=== PATIENT | male | born 1940 | race Caucasian/White ===

== ENCOUNTER → 2016-04-21 | Outpatient (CLI) | payer MEDICARE ==
[~2016-04-21] MED LIST: AC325T PO; AC500T; ACHD5005 PO; ALFALFA; ALPR.25T PO; ALPR1TAB7 PO; ASCO500C14 PO; ASP325T PO; ASP81CT; ASPI-983 PO; C250T; CALC-656 PO; CALCIUM WITH D; CHOL10003 PO; CLPD75T; CRESTOR40 MG PO; DCS100C; DCS100C PO; DICL75TA2 PO; DICLOFENAC; DOCU250C75 PO; EZET10TA5; FENO135C PO; FENO145T; FENO145T20 PO; FISH1CAP15 PO; GLUC1CAP37 PO; GLUCOSAMINE CHONDROI; HYDR-3812 PO; ISM30TCR; ISM30TCR PO; LOVAZA; MTP25TSR; NF-LOVAZAC PO; NITR4.1S2 SL; OMEG1CAP58 PO; OMEP20CA12; OMEP20CA12 PO; PROP1TAB77; PSYL1PAC15 PO; RMP5C; ROSU20TA14; SUPER-B COMPLEX; TEMA30CA PO; TICA90TA PO; VITA150T PO; [UNRECOGNIZED DRUG - CODE] PO
--- OUTSIDE RECORDS SUMMARY | 2016-04-21 14:43 | XMS REPORT | Continuity of Care Document ---
Author Author [facility] Organization [facility] Address Unknown Phone Unavailable Care Team Providers Care Assistant District Attorney Name Role Phone FRAN VIZCARRA MD PCP Insurance Providers Payer Name Policy Number Subscriber Name Relationship [employer] [id number] Edmar Ayala 18 Self / Same As Patient [facility] [id number] Edmar Ayala 18 Self / Same As Patient Advance Directives Directive Response Recorded Date/Time Advance Directives Yes 11/10/15 6:46pm Health Care Power of Heart Doctor Yes 11/10/15 6:46pm Organ Donor Yes 11/10/15 6:46pm Resuscitation Status Full Code 11/10/15 6:46pm Chief Complaint and Reason for Visit Chief Complaint Nasal Problems Reason for Visit Epistaxis Problems Active Problems Medical Problem Onset Date Status Epistaxis Unknown Acute Medications Current Home Medications Medication Dose Units Route Directions Days/Qty Instructions Start Date Rosuvastatin Calcium 40 Mg 40 Mg Oral Daily 09/04/10 Aspirin 81 Mg 81 Mg Oral Daily 11/09/15 Alprazolam 1 Mg 1 Mg Oral Twice A Day as needed for Anxiety 11/09/15 Hydrocodone/Acetaminophen 1 Each 1 Each Oral Every 4HRS as needed for Pain 11/09/15 Docusate Sodium 250 Mg 250 Mg Oral As Needed as needed for Constipation 11/09/15 Omeprazole 20 Mg 20 Mg Oral Daily 11/09/15 Fenofibrate Nanocrystallized 145 Mg 145 Mg Oral Daily 11/09/15 Nitroglycerin 4.1 Gm 4.1 Gm Sublingual As Needed as needed for Chest Pain 11/09/15 Fish Oil/Dha/Epa 1 Each 1 Each Oral Daily 11/09/15 Ticagrelor 90 Mg 90 Mg Oral Twice A Day 60 11/10/15 Past Home Medications Medication Directions Ordered Status Aspirin 325 Mg Tab, 325 Mg Oral Daily 09/04/10 Discontinued Pryqi-1-Tvpa Ethyl Esters 1 Gm Capsule, 1 Tab Oral Twice A Day 09/04/10 Discontinued Fenofibric Acid (Choline) 135 Mg Capsule.dr, 135 Mg Oral Daily 09/04/10 Discontinued Diclofenac Sodium 75 Mg Tablet.dr, 75 Mg Oral Twice A Day 09/04/10 Discontinued Acetaminophen 325 Mg Tablet, 325 Mg Oral As Needed 09/04/10 Discontinued Acetaminophen/Hydrocodone Bitart 1 Each Tablet, 1 Each Oral As Needed Discontinued Docusate Sodium 100 Mg Capsule, 100 Mg Oral Twice A Day 09/04/10 Discontinued Psyllium Hydrophilic Mucilloid 1 Pkt Packet, 1 Pkt Oral Twice A Day 09/04/10 Discontinued Temazepam 30 Mg Capsule, 30 Mg Oral As Needed 09/04/10 Discontinued Alprazolam 0.25 Mg Tablet, 0.25 Mg Oral As Needed 09/04/10 Discontinued Ascorbic Acid 500 Mg Capsule.sa, 500 Mg Oral Daily 09/04/10 Discontinued Luce 1 Each Tablet, 650 Mg Oral Daily 09/04/10 Discontinued Calcium Carbonate/Vitamin D3 1 Each Tablet, 1 Each Oral Daily 09/04/10 Discontinued Cholecalciferol 1,000 Unit Tablet, 1000 Unit Oral Daily 09/04/10 Discontinued Vitamin B Complex & Vit C No.4 150 Mg Tablet, 150 Mg Oral Daily 09/04/10 Discontinued Glucosa Fong 2KCL/Chondroitin Fong 1 Each Capsule, 1 Each Oral Twice A Day Discontinued [place]-3/[place]-6/[place]-9 Fatty Acids (Lovaza) 1 Each Capsule, 1 Each Oral Twice A Day 09/04/10 Discontinued Isosorbide Mononitrate 30 Mg Tab, 30 Mg Oral Daily@0630 09/04/10 Discontinued Social History Social History Problem Response Recorded Date/Time Alcohol Use Denies Use 11/10/2015 6:46pm Recreational Drug Use No 11/10/2015 6:46pm Recent Foreign Travel No 11/10/2015 6:46pm Recent Infectious Disease Exposure No 11/10/2015 6:46pm Smoking Status Never a Smoker 11/10/2015 6:46pm Recent Hopitalizations Y STENT 11/09/15 11/10/2015 6:46pm Query Response Start Date Stop Date Smoking Status Never a Smoker Hospital Discharge Instructions No hospital discharge instructions. Plan of Care Discharge Date 11/10/15 7:33pm Disposition 01 HOME, SELF-CARE Condition at Discharge Stable Instructions/Education Provided Epistaxis (ED) Prescriptions See Medication Section Referrals FRAN VIZCARRA MD - Primary Care Physician Additional Instructions/Education 1. If your nose begins to bleed again, apply direct pressure by pinching the nose shut and leaning forward for 20 minutes. If this does not stop it, come back to ER. Do not blow your nose and do your best not to sneeze. All discharge instructions reviewed with patient and/or family. Voiced understanding. Functional Status No functional status results. Allergies, Adverse Reactions, Alerts Allergen Type Severity Reaction Status Last Updated diflunisal ([id number]) Allergy Unknown Active 06/01/07 Immunizations No immunization records. Vital Signs Acute Vital Signs Vital Response Date/Time Temperature (Fahrenheit) 96.7 degrees F (97.6 - 99.5) 11/10/2015 8:40am Temperature (Calculated Celsius) 35.73930 degrees C (36.4 - 37.5) 11/10/2015 8:00am Temperature Source Tympanic 11/10/2015 8:40am Pulse Rate (adult) 77 bpm (60 - 90) 11/10/2015 6:46pm Respiratory Rate 18 bpm (12 - 24) 11/10/2015 6:46pm O2 Sat by Pulse Oximetry 95 % (88 - 100) 11/10/2015 6:46pm Blood Pressure 144/76 mm Hg 11/10/2015 6:46pm Blood Pressure Mean 98 mm Hg 11/10/2015 6:46pm Pain Numeric Pain Scale 0-No Pain 11/10/2015 8:40am Height (Feet) 5 feet 11/10/2015 6:46pm Height (Inches) 9 inches 11/10/2015 6:46pm Height (Calculated Centimeters) 175.412024 cm 11/10/2015 6:46pm Weight (Pounds) 210 pounds 11/10/2015 6:46pm Weight (Ounces) 0.0 oz 11/09/2015 7:26am Weight (Calculated Grams) 88009.21 gm 11/09/2015 7:26am Weight (Calculated Kilograms) 95.887195 kilograms 11/10/2015 6:46pm Calculated BMI 29.8 11/09/2015 7:26am Capillary Refill Capillary Refill Less Than 3 Seconds 11/10/2015 6:46pm Results Pending Laboratory Results Test Name Collection Date/Time Pending Microbiology Results Procedure Source Collection Date/Time Procedures Procedure Status Date Provider(s) Color Doppler echocardiography Active 11/05/15 CONNIE LOPEZ Tracing only of electrocardiogram Completed 11/09/15 MARIA EUGENIA GRAVES MD Tracing only of electrocardiogram Active 11/09/15 MARIA EUGENIA GRAVES MD Encounters Encounter Location Arrival/Admit Date Discharge/Depart Date Attending Provider Departed Emergency Room [facility] 11/10/15 6:38pm 11/09 7:33pm EMY SULTANA APRN Departed Surgical Day Care [facility] 11/09/15 7:03am 8:20am MARIA EUGENIA GRAVES MD Registered Clinic [facility] 11/07/15 8:18am CONNIE RODRIGUEZ Registered Clinic [facility] 11/05/15 9:32am CONNIE RODRIGUEZ Recent Diagnosis
--- NOTE | 2016-04-21 15:14 | Diagnostic Imaging Report ---
INDICATION: Left second toe injury. FINDINGS: Three views of the left foot with attention to the second toe show a fracture off of the dorsal plate at the base of the distal phalanx of the second toe. This fragment measures about 2 mm in diameter. IMPRESSION: Dorsal plate fracture off the base of the distal phalanx of the left second toe. Dictated by: Dictated on workstation # [id number]
== END ==
LOC: RAD 14:38
PROVIDERS: ATTEND Nurse Practitioner Family
DX: M79.672 Pain in left foot (principal)
CPT/HCPCS: 73630

== ENCOUNTER → 2016-11-19 | Outpatient (CLI) | payer MEDICARE ==
[~2016-11-19] MED LIST changes: +CYAN10006 PO; +FERR-74 PO; +HYDR-3820 PO; +ISOS30TA3 PO; +LYSI100014 PO; +MULT-35 PO; +OMG1KC PO; +ROSU20TA28 PO; +SENN-175 PO
== END ==
LOC: CARD 12:55
PROVIDERS: ATTEND Physician Assistant
DX: I25.10 Atherosclerotic heart disease of native coronary artery without angina pectoris (principal); I65.23 Occlusion and stenosis of bilateral carotid arteries; I10 Essential (primary) hypertension; E78.2 Mixed hyperlipidemia
CPT/HCPCS: 93306

== ENCOUNTER → 2016-12-08 | Outpatient (CLI) | payer MEDICARE ==
[~2016-12-08] MED LIST changes: +CATHETER FLUSH 10 ML SYR IV PRN; -CYAN10006 PO; -FERR-74 PO; -HYDR-3820 PO; -ISOS30TA3 PO; -LYSI100014 PO; -MULT-35 PO; -OMG1KC PO; +REGADENOSON 0.4 MG/5 ML SYR (LEXISCAN) IV ONE; -ROSU20TA28 PO; -SENN-175 PO
[2016-12-08 10:09] VITALS: BP 143/73
[2016-12-08 10:13] VITALS: BP 160/76
[2016-12-08 10:14] VITALS: BP 141/75
--- NOTE | 2016-12-09 07:19 | STRESS TEST ---
DATE OF SERVICE: 12/08/2016 EXERCISE AND LEXISCAN MYOVIEW STRESS TEST REPORT REFERRING PHYSICIAN: Dr. Aly Nair. Baseline heart rate is 54. Baseline blood pressure 130/70. Baseline EKG is sinus rhythm with no ischemic changes. In summary, the patient was injected with 10.6 mCi of technetium-99 Myoview and the resting images were obtained. Then, the patient started exercising with a baseline heart rate, blood pressure and EKG mentioned above. At 5 minutes, 49 seconds test was terminated. He was unable to perform any further. Test was converted to Lexiscan Myoview stress test. He achieved only 73% of maximum expected heart rate. The patient received 0.4 mg of Lexiscan followed by 32.3 mCi of technetium-99 Myoview. Throughout the test, there were no EKG changes. The resting and stress images were reviewed and compared in the short axis, horizontal long axis, and vertical long axis views. Review of the images showed reversible ischemia involving the mid to apical anterior wall, anterolateral wall and mid to apical inferior wall with diaphragmatic attenuation. SSS is 14, SDS 9, TID value 1.03. On the gated images, the left ventricle appeared to be in normal size with normal contractility, calculated ejection fraction 50%. CONCLUSION: 1. Fair exercise tolerance a total of 5 minutes and 49 seconds, did not achieve his target heart rate and patient was unable to perform any further. Test was terminated and converted to Lexiscan Myoview stress test. The patient tolerated Lexiscan well. 2. Diaphragmatic attenuation affecting the quality of the inferior wall images, there is reversible ischemia involving the mid to apical anterior wall and anterolateral wall and questionable ischemia at the mid to apical inferior wall. 3. Normal left ventricular size with normal contractility, calculated ejection fraction 50%. Job ID: [id number] DocumentID: [id number] Dictated Date: 12/08/2016 12:09:41 Public Policy Associate Date: 12/08/2016 15:28:57 Dictated By: MARIA EUGENIA GRAVES MD
== END ==
LOC: CARD 07:58
PROVIDERS: ATTEND Physician Assistant
DX: I25.10 Atherosclerotic heart disease of native coronary artery without angina pectoris (principal); I65.23 Occlusion and stenosis of bilateral carotid arteries; I10 Essential (primary) hypertension; E78.2 Mixed hyperlipidemia
CPT/HCPCS: 78452; 93017

== ENCOUNTER 2016-12-17 07:23 | Day surgery (SDC) | payer MEDICARE ==
[2016-12-17] VITALS (13 sets, daily range): BP systolic 112–159; BP diastolic 65–90
[~2016-12-17] VITALS: Ht 175.3 cm; Wt 98.9 kg
[~2016-12-17 07:23] MED LIST changes: -CATHETER FLUSH 10 ML SYR IV PRN; +HEParin (CATH LAB) 2,000 ML IV ONE; +NS IV 1000 ML 1,000 ML ONE; -REGADENOSON 0.4 MG/5 ML SYR (LEXISCAN) IV ONE
[2016-12-17] MEDS ORDERED: NS IV 1000 ML 1,000 ML IV SCH ×2 (07:45→09:24)
[2016-12-17 07:58] LABS: MEAN PLATELET VOLUME 10.4 FL (7.4-10.4); RED BLOOD COUNT 4.83 10^6/uL (4.35-5.85); RED CELL DISTRIBUTION WIDTH 14.5 % (10.0-14.5); WHITE BLOOD COUNT 5.9 10^3/uL (4.3-11.0)
[2016-12-17 08:06] LABS: INR 0.9 (0.8-1.4); PROTHROMBIN TIME PATIENT 12.1 SEC (12.2-14.7)
--- NOTE | 2016-12-17 08:09 | Diagnostic Imaging Report ---
INDICATION: Pre-heart catheterization with possible angioplasty and stent COMPARISON STUDY: Chest from 11/09/15. FINDINGS: Portable view of the chest demonstrates the lungs to be clear. The heart and vascularity are normal. There are no pleural effusions. Postoperative changes are again seen in the right shoulder. IMPRESSION: There are no acute findings. Dictated by: Dictated on workstation # [id number]
[2016-12-17 08:15] LABS: ALANINE AMINOTRANSFERASE 33 U/L (0-55); ALBUMIN 4.4 GM/DL (3.2-4.5); ANION GAP 10 MMOL/L (5-14); ASPARTATE AMINO TRANSFERASE 16 U/L (5-34); BILIRUBIN,TOTAL 0.5 MG/DL (0.1-1.0); BLOOD UREA NITROGEN 16 MG/DL (7-18); BUN/CREATININE RATIO 19; CALCIUM 9.8 MG/DL (8.5-10.1); CARBON DIOXIDE 22 MMOL/L (21-32); CHLORIDE 108 MMOL/L (98-107); CREATININE SERUM 0.85 MG/DL (0.60-1.30); GFR ESTIMATED > 60; GLUCOSE 106 MG/DL (70-105); POTASSIUM 4.1 MMOL/L (3.6-5.0); SODIUM 140 MMOL/L (135-145); TOTAL PROTEIN 7.4 GM/DL (6.4-8.2)
[2016-12-17] MEDS ORDERED: MULT-35 PO (08:22)
[2016-12-17] MEDS ORDERED: TEMA30CA PO (08:22)
[2016-12-17] MEDS ORDERED: HYDR-3820 PO (08:22)
[2016-12-17] MEDS ORDERED: ROSU20TA28 PO (08:22)
[2016-12-17] MEDS ORDERED: OMG1KC PO ×2 (08:22)
[2016-12-17] MEDS ORDERED: SENN-175 PO (08:22)
[2016-12-17] MEDS ORDERED: ISOS30TA3 PO (08:22)
[2016-12-17] MEDS ORDERED: FERR-74 PO (08:27)
[2016-12-17] MEDS ORDERED: CYAN10006 PO (08:27)
[2016-12-17] MEDS ORDERED: LYSI100014 PO (08:27)
[2016-12-17] MEDS ORDERED: CHOL10003 PO (08:27)
[2016-12-17] MEDS ORDERED: fentaNYL INJECTION 100 MCG/2 ML AMP ONE (08:45)
[2016-12-17] MEDS ORDERED: MIDAZOLAM 5 MG/5 ML (VERSED) VIAL ONE (08:45)
--- NOTE | 2016-12-17 09:06 | Cardiac Procedure Note-CS/ASA ---
Pre-Procedure Note Pre-Op Procedure Note H&P Reviewed The H&P was reviewed, patient examined and no changes noted. Date H&P Reviewed: Dec 17, 2016 Time H&P Reviewed: 09:06 Conscious Sedation Pre-Proced Time Reviewed: 09:06 ASA Class: 3 Airway Mallampati Classification: ([place] appropriate class) I. II. III, IV Lungs Heart ASA score ASA 1: a normal healthy patient ASA 2: a patient with a mild systemic disease (mid diabetes, controlled hypertension, obesity x ASA 3: a patient with a severe systemic disease that limits activity (angina , COPD, prior Myocardial infarction) ASA 4: a patient with an incapacitating disease that is a constant threat to life (CHF, renal failure) ASA 5: a moribund patient not expected to survive 24 hrs. (ruptured aneurysm) ASA 6: a declared brain patient whose organs are being harvested. For emergent operations, add the letter E after the classification Grade 3 Sedation Plan: Analgesia, Amnesia, Plan communicated to team members, Discussed options with patient/fam, Discussed risks with patient/fam Note The patient is an appropriate candidate to undergo the planned procedure, sedation, and anesthesia. The patient immediately re-assessed prior to indication. MARIA EUGENIA GRAVES MD Dec 17, 2016 09:06
[2016-12-17] MEDS ORDERED: NITROGLYCERIN DRIP 25 MG/D5W 0 ML IV ONE (09:10)
[2016-12-17] MEDS ORDERED: HEParin 1000 UNIT/ML (10ML VIAL) FOR BOLUS ONE (09:10)
--- NOTE | 2016-12-17 09:26 | Discharge Inst-Post CATH ---
Discharge Inst-CATH Post Cardiac Cath D/C Inst Follow Up/Plan Appointment with Dr. Rangel's office in 2-4 weeks CARDIAC CATH DISCHARGE INSTRUCTIONS *Hold Metformin for 48 hours post heart cath. ACTIVITY * Go Home directly and rest. * Limit activity of the leg (or wrist if it was used) for 7 days including aerobics, swimming, jogging, bicycling, etc. * Restrict stair-climbing for 7 days if possible, if not, climb up with your non -cath leg, then bring together on the same step. * Avoid lifting, pushing, pulling or excessive movement of the affected extremity for 7 days. * Customary sexual activity may be resumed after 2 days-use caution not to use a position that strains or causes pain to the affected extremity. * No driving for 24 hours. * NO SMOKING. * Avoid straining for bowel movements for 7 days. * Gentle walking on level ground is allowed. * Returning to work will depend on the type of procedure and the results. Your doctor will discuss this with you. CALL YOUR DOCTOR FOR ANY OF THE FOLLOWING: *If bleeding from the puncture site occurs- Apply gentle pressure to site with clean cloth and call your doctor or EMS. * If a knot or lump forms under the skin, increases in size, or causes pain. * If bruising appears to be worsening or moving further down your leg instead of disappearing. * Temperature above 101 F. CARE OF YOUR GROIN INCISION; * Bruising or purple discoloration of the skin near the puncture site is common. * You may shower only, no bathtub bathing for 5 days. Be careful to avoid slipping as your leg may feel stiff. * If a closure device was used on your femoral artery, please see the attached guide regarding care of the device and your leg. * REMOVE the dressing from your groin the next day after your procedure in the shower. CARE OF YOUR WRIST INCISION; * Bruising or purple discoloration of the skin near the puncture site is common. * You may shower. * DO NOT submerge wrist. * Remove dressing in 24 hours. MARIA EUGENIA RANGEL MD Dec 17, 2016 09:26
[2016-12-17] MEDS ORDERED: PATIENT MAY USE OWN MEDS, ALL PO SCH (09:30)
--- NOTE | 2016-12-17 09:31 | Cardiac Cath Report ---
Cardiac Cath Report Physician (s)/Referral Agent (s) Physician MARIA EUGENIA GRAVES MD Pre-Procedure Diagnosis Pre-Procedure Diagnosis: CAD Post-Procedure Note Procedure Start Date: Dec 17, 2016 Procedure Start Time: 09:00 Name of Procedure: left heart catheterization Findings/Procedure Note PROCEDURE NOTE: After explaining the procedure to the patient, all pros and cons were explained, all questions were answered. The patient signed the consent and then she was placed on the cardiac catheterization laboratory. The patient was placed on the cardiac catheterization laboratory. Groin was prepped SL fashion local anesthesia was used. Sheath placed in the artery. Gail right and left catheter were used to access the coronary system. Pigtail was used to access the left ventricular cavity. Left ventriculogram was not done Aortic arch angiogram was not done At the end of the procedure the sheath was removed. Closure device was used FINDINGS: Hemodynamics LV 129/15 end-diastolic pressure of 15 Aorta 129/53 mean of 83 ANATOMY: Left Main is mildly calcified with no significant obstructive disease Left Anterior Descending has multiple stents at the ostium and proximal with mild in-stent restenosis, beyond the stent there is a step down with about 40- 50 percent stenosis in the mid LAD nonobstructive disease fairly small artery Left Circumflex large dominant artery with mild disease nonobstructive disease Right Coronory Artery mild to moderate diffuse disease, total occlusion at the ostium of the right PDA getting filled by collaterals from the left LV Gram was not done, left ventricular pressure was measured CONCLUSION: 1. 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 Fairly small artery 2. Patent stent at the ostium and proximal LAD with mild in-stent restenosis, beyond the stent there is a stepdown with 40-50 percent stenosis, smaller artery with [id number] disease nonobstructive disease 3. Large dominant circumflex artery with mild disease nonobstructive disease DISCUSSION AND RECOMMENDATION: The right PDA is a small artery, medical therapy is recommended, it is receiving collateral from the left system. No intervention is warranted. Anesthesia Type: Conscious Sedation Estimated blood loss (mL): 5 ml Contrast Amount: 56 ml Total Radiation Dose: 665 mGy Post-Procedure Diagnosis Post-operative diagnosis: coronary artery disease Hypertension Hyperlipidemia Anterior chest wall pain MARIA EUGENIA GRAVES MD Dec 17, 2016 09:31
== END 2016-12-17 14:05 | disposition home or self-care (01) ==
LOC: CATH 07:23 → SURG 09:44 → CATH 14:05
PROVIDERS: ATTEND Internal Medicine Cardiovascular Disease
DX: I25.10 Atherosclerotic heart disease of native coronary artery without angina pectoris (principal); I25.84 Coronary atherosclerosis due to calcified coronary lesion; I25.82 Chronic total occlusion of coronary artery; I10 Essential (primary) hypertension; E78.5 Hyperlipidemia, unspecified; R07.89 Other chest pain; I49.5 Sick sinus syndrome; R06.02 Shortness of breath; Z79.899 Other long term (current) drug therapy; Z95.5 Presence of coronary angioplasty implant and graft
CPT/HCPCS: 36415; 71010; 80053; 85027; 85610; 85730; 87081; 93005; 93458

== ENCOUNTER 2017-10-21 05:31 | Outpatient (CLI) | payer MEDICARE ==
[~2017-10-21] VITALS: Ht 175.3 cm; Wt 98.9 kg
[~2017-10-21 05:31] MED LIST changes: +CYAN10006 PO; -FENO145T20 PO; +FENO145T37 PO; +FERR325T18 PO; -HEParin (CATH LAB) 2,000 ML IV ONE; -HYDR-3812 PO; +HYDR-3820 PO; +ISOS30TA3 PO; +LYSI100014 PO; +MULT-35 PO; -NS IV 1000 ML 1,000 ML ONE; +OMG1KC PO; +ROSU20TA31 PO; +SENN-175 PO
[2017-10-22] MEDS ORDERED: FISH1CAP15 PO (12:50)
[2017-10-22] MEDS ORDERED: ATOR80TA76 PO (12:50)
== END 2017-10-22 12:55 | disposition home or self-care (01) ==
LOC: PREOP 05:31
PROVIDERS: ATTEND Specialist
DX: Z01.818 Encounter for other preprocedural examination (principal); H25.12 Age-related nuclear cataract, left eye

== ENCOUNTER 2017-10-23 09:46 | Day surgery (SDC) | payer MEDICARE ==
[~2017-10-23] VITALS: Ht 175.3 cm; Wt 98.9 kg
[~2017-10-23 09:46] MED LIST changes: +ATOR80TA76 PO
[2017-10-23 09:50] VITALS: BP 139/74
[2017-10-23] MEDS ORDERED: LIDOCAINE PF 1% 2 ML AMP IR PRN (10:00)
[2017-10-23] MEDS ORDERED: EPINEPHrine INJECTION 1 MG/ML AMP INJ ONE ×2 (10:00→10:15)
[2017-10-23] MEDS ORDERED: VANCOMYCIN/BSS (COMPOUNDED) 10 MG/ML SYR OP ONE (10:00)
[2017-10-23] MEDS ORDERED: POVIDONE (BETADINE) OPHTH SOLN 5% 30 ML OP ONE (10:00)
[2017-10-23] MEDS ORDERED: TIMOLOL MALEATE 0.5% 5 ML (TIMOPTIC) BTL OU PRN (10:00)
[2017-10-23] MEDS: TETRACAINE 0.5% OPHTH SOLN 4 ML BTL (SINGLE DOSE ONLY) OU PRN ×4 (10:15→10:25)
[2017-10-23] MEDS: PHENYLEPHRINE 10% OPHTH (NEO-SYN) 5 ML BTL OU SCH ×3 (10:19→10:25)
[2017-10-23] MEDS: CYCLOPENTOLATE 1% (CYCLOGYL) 2 ML DROPS OP SCH ×3 (10:19→10:25)
[2017-10-23] MEDS ORDERED: MIDAZOLAM 2 MG/2 ML (VERSED) VIAL ONE (10:37)
--- NOTE | 2017-10-23 10:58 | Ophthalmologist Pre-Op Note ---
Pre-Operative Progress Note H&P Reviewed The H&P was reviewed, patient examined and no changes noted. Date H&P Reviewed: Oct 23, 2017 Time H&P Reviewed: 10:58 Pre-Op Dx Cataract, Left Eye ADILIA CACERES MD Oct 23, 2017 10:58
[2017-10-23 11:30] VITALS: BP 129/89
--- NOTE | 2017-10-23 12:57 | Anesthesia-General Post-Op ---
MAC Patient Condition Mental Status/LOC: Same as Preop Cardiovascular: Satisfactory Nausea/Vomiting: Absent Respiratory: Satisfactory Pain: Controlled Complications: Absent Post Op Complications Complications None Follow Up Care/Instructions Patient Instructions None needed. Anesthesiology Discharge Order Discharge Order Patient is doing well, no complaints, stable vital signs, no apparent adverse anesthesia problems. No complications reported per nursing. DANA RAYO CRNA Oct 23, 2017 12:57
--- NOTE | 2017-10-29 13:30 | OPERATIVE REPORT ---
DATE OF SERVICE: 10/23/2017 PREOPERATIVE DIAGNOSIS: Nuclear sclerotic cataract, left eye. POSTOPERATIVE DIAGNOSIS: Nuclear sclerotic cataract, left eye. PROCEDURE: Phacoemulsification with posterior chamber intraocular lens. ANESTHESIA: Topical with IV sedation. COMPLICATIONS: None. DESCRIPTION OF PROCEDURE: An informed consent was obtained from the patient and placed on his chart. He received a dilating drops as well as topical anesthetic drops. He was taken to the operating room and placed in a supine position on the operating table. He was sedated by the anesthesia provider. He was prepped and draped in usual sterile fashion. Attention was directed to the patient's left eye and a wire lid speculum was placed. The operating microscope was moved into position. A paracentesis was made at the left hand position. Preservative-free lidocaine was injected into the anterior chamber followed by viscoelastic. A clear corneal incision was then made in the temporal position with a 2.75 mm keratome. Capsulorrhexis was then made. Hydrodissection was carried out with balanced salt saline. The nucleus was then removed by phacoemulsification and the cortex by aspiration. The posterior capsule was polished. The anterior chamber was refilled with viscoelastic and an Howard [id number] 19.5 diopter lens was placed into the capsular bag. The residual viscoelastic was aspirated. The anterior chamber was inflated with balanced salt saline. 1 mg of vancomycin was injected into the anterior chamber. The wounds were checked and found to be watertight. The wire lid speculum and surgical drapes were removed. The patient tolerated the procedure well and was taken to recovery room in stable condition. Job ID: [id number] DocumentID: [id number] Dictated Date: 10/29/2017 11:16:10 Diamond Mounter Date: 10/29/2017 13:30:00 Dictated By: ADILIA CACERES MD
== END 2017-10-23 11:30 | disposition home or self-care (01) ==
LOC: SDC 09:46
PROVIDERS: ATTEND Specialist
DX: H25.12 Age-related nuclear cataract, left eye (principal); I25.10 Atherosclerotic heart disease of native coronary artery without angina pectoris; G47.33 Obstructive sleep apnea (adult) (pediatric); Z87.891 Personal history of nicotine dependence; Z95.5 Presence of coronary angioplasty implant and graft; Z79.82 Long term (current) use of aspirin

== ENCOUNTER → 2018-11-24 | Outpatient (CLI) | payer MEDICARE, OTHER ==
[~2018-11-24] MED LIST changes: +CYAN-41 PO; -CYAN10006 PO; -OMEP20CA12 PO; +OMEP20CA13 PO; -ROSU20TA31 PO; +ROSU20TA32 PO
== END ==
LOC: CARD 10:29
PROVIDERS: ATTEND Physician Assistant
DX: I08.0 Rheumatic disorders of both mitral and aortic valves (principal); I25.10 Atherosclerotic heart disease of native coronary artery without angina pectoris; I65.29 Occlusion and stenosis of unspecified carotid artery; I10 Essential (primary) hypertension; E78.5 Hyperlipidemia, unspecified
CPT/HCPCS: 93306

== ENCOUNTER → 2018-12-01 | Outpatient (RCR) | payer MEDICARE, OTHER | END | disposition home or self-care (01) | PROVIDERS: ATTEND Orthopaedic Surgery | DX: Z96.612 Presence of left artificial shoulder joint (principal) ==

== ENCOUNTER → 2018-12-06 | Outpatient (CLI) | payer MEDICARE, OTHER ==
[~2018-12-06] VITALS: Ht 175 cm; Wt 98.0 kg
[~2018-12-06] MED LIST changes: +CATHETER FLUSH 10 ML SYR IV PRN; +REGADENOSON 0.4 MG/5 ML SYR (LEXISCAN) IV ONE
[2018-12-06 09:07] VITALS: BP 146/71
[2018-12-06 09:15] VITALS: BP 149/73
--- NOTE | 2018-12-06 16:40 | STRESS TEST ---
DATE OF SERVICE: 12/06/2018 LEXISCAN MYOVIEW STRESS TEST REPORT REFERRING PHYSICIAN: Dr. Nair. Baseline heart rate is 63. Baseline blood pressure 146/70. Baseline EKG is sinus rhythm with no ischemic changes. In summary, the patient was injected with 10.78 mCi of technetium-99 Myoview and the resting images were obtained. Then, the patient received 0.4 mg of Lexiscan followed by 29.7 mCi of technetium-99 Myoview. Throughout the test, there were no EKG changes. The resting and stress images were reviewed and compared in the short axis, horizontal long axis, and vertical long axis views. Review of the images showed diaphragmatic attenuation with reversible ischemia involving the mid to apical inferior wall. SSS is 5, SDS 4, TID value is increased 1.27. On the gated images, the left ventricle appeared to be normal size with normal contractility. Calculated ejection fraction 51%. CONCLUSION: 1. The patient tolerated Lexiscan well. 2. Diaphragmatic attenuation with mild reversible ischemia involving the mid to apical inferior wall. 3. Transient ischemic dilatation with TID value 1.27. 4. Normal left ventricular size with normal contractility. Calculated ejection fraction 51%. Job ID: [id number] DocumentID: [id number] Dictated Date: 12/06/2018 11:55:43 Dowel Pin Man Date: 12/06/2018 16:39:04 Dictated By: MARIA EUGENIA GRAVES MD
== END ==
LOC: CARD 07:05
PROVIDERS: ATTEND Internal Medicine Cardiovascular Disease
DX: I25.10 Atherosclerotic heart disease of native coronary artery without angina pectoris (principal); I65.29 Occlusion and stenosis of unspecified carotid artery; I10 Essential (primary) hypertension; E78.5 Hyperlipidemia, unspecified; I25.89 Other forms of chronic ischemic heart disease
CPT/HCPCS: 78452; 93017

== ENCOUNTER 2018-12-22 11:17 | Outpatient (RCR) | payer MEDICARE, OTHER ==
[~2018-12-22 11:17] MED LIST changes: -CATHETER FLUSH 10 ML SYR IV PRN; -REGADENOSON 0.4 MG/5 ML SYR (LEXISCAN) IV ONE
== END 2019-01-12 10:04 | disposition home or self-care (01) ==
PROVIDERS: ATTEND Orthopaedic Surgery
DX: Z47.1 Aftercare following joint replacement surgery (principal); Z96.611 Presence of right artificial shoulder joint; Z96.612 Presence of left artificial shoulder joint